=== PATIENT | female | born 2000 | race Caucasian/White ===

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

== ENCOUNTER 2022-11-08 22:08 | Emergency (ER) | payer MEDICAID ==
[~2022-11-08] VITALS: Ht 170.2 cm; Wt 70.3 kg
[2022-11-08 22:18] VITALS: BP_SYST 127
--- NOTE | 2022-11-08 22:18 | NUR ---
Triaged and placed patient back to the waiting room. No acute respiratory distress at this time. VSS. Informed patient to notify ED staff for any changes in condition or worsening of symptoms while waiting to be seen by a provider. Patient verbalized understanding.
--- NOTE | 2022-11-08 22:45 | NUR ---
Patient placed in ER bed 8 for evaluation. Bed in lowest position with side rails up. Instructed to notify ED staff for any changes in condition or worsening of symptoms while waiting to be seen by a provider. Patient verbalized understanding.
--- NOTE | 2022-11-08 23:04 | NUR ---
PT FROM HOME WITH C/O OF NOT FEELING WELL FOR PAST COUPLE OF DAYS. PT REPORTS FEELING DIZZY, FEVERISH AND PT SOUNDS CONGESTED WHILE SPEAKING. PT REPORTS TAKING MEDICATION FOR TEMP BUT DOES NOT KNOW WHAT IT IS CALLED.
[2022-11-08 23:13] LABS: STREPTOCOCCUS A SCREEN (RAPID) NEGATIVE (NEGATIVE)
--- NOTE | 2022-11-08 23:36 | NUR ---
Dr. Knott at bedside examining the patient.
[2022-11-08] MEDS ORDERED: IBUP-1969 PO (23:52)
[2022-11-08] MEDS ORDERED: ALBMDI INH (23:52)
[2022-11-08] MEDS ORDERED: GUAI-723 PO (23:52)
[2022-11-08] MEDS ORDERED: PSEU120T57 PO (23:52)
[2022-11-09 00:03] VITALS: BP_SYST 112
--- NOTE | 2022-11-09 00:04 | NUR ---
Patient given written and verbal discharge instructions and verbalizes understanding. ER MD discussed with patient the results and treatment provided. Patient in stable condition. ID arm band removed. Rx of ALBUTEROL MDI, MUCINEX DM ER, IBUPROFEN, SUDAFED 12HR given. Patient educated on pain management and to follow up with PMD. Pain Scale 3/10. Opportunity for questions provided and answered.
== END 2022-11-09 00:03 | disposition home or self-care (01) ==
LOC: SED 22:08
DX: J20.8 Acute bronchitis due to other specified organisms (principal); J06.9 Acute upper respiratory infection, unspecified; R05.9 Cough, unspecified; R50.9 Fever, unspecified; Z79.899 Other long term (current) drug therapy; Z20.822 Contact with and (suspected) exposure to COVID-19
CPT/HCPCS: 36415; 86403; 87081; 99283

== ENCOUNTER 2023-01-23 14:35 | Emergency (ER) | payer MEDICAID ==
[~2023-01-23] VITALS: Ht 170.2 cm; Wt 59.0 kg
[~2023-01-23 14:35] MED LIST: ALBMDI INH; GUAI-723 PO; IBUP-1969 PO; PSEU120T57 PO
[2023-01-23 14:41] VITALS: BP_SYST 108
[2023-01-23] MEDS ORDERED: ONDANSETRON 4 MG ODT TAB PO ONE (15:00)
[2023-01-23] MEDS ORDERED: ACETAMINOPHEN 325 MG TABLET PO ONE (15:00)
[2023-01-23] MEDS ORDERED: KETOROLAC TROMETHAMINE 30 MG VIAL ONE (15:44)
[2023-01-23] MEDS ORDERED: KETOROLAC TROMETHAMINE 30 MG VIAL IM ONE (15:45)
[2023-01-23] MEDS ORDERED: IBUP-1971 PO (15:52)
[2023-01-23] MEDS ORDERED: ONDA-8 TL (15:52)
[2023-01-23 16:14] VITALS: BP_SYST 110
== END 2023-01-23 16:15 | disposition home or self-care (01) ==
LOC: SED 14:35
DX: S06.0X0A Concussion without loss of consciousness, initial encounter (principal); R42 Dizziness and giddiness; R20.0 Anesthesia of skin; Z79.899 Other long term (current) drug therapy; W01.0XXA Fall on same level from slipping, tripping and stumbling without subsequent striking against object, initial encounter; Y93.89 Activity, other specified; Y92.89 Other specified places as the place of occurrence of the external cause; Y99.8 Other external cause status
CPT/HCPCS: 99285; 70450; 76376; 96372; Q0162; J1885